=== PATIENT | female | born 1955 | race Caucasian/White ===

== ENCOUNTER → 2016-08-28 | Outpatient (CLI) | payer OTHER ==
--- NOTE | 2016-09-08 08:38 | MM ---
Reason for exam: additional evaluation requested from prior study. Last mammogram was performed 1 year and 6 months ago. History: Patient is postmenopausal. Family history of breast cancer in maternal aunt and endometrial cancer in maternal aunt. US discontinued breast bx LT of the left breast, June 23, 2014. Benign excisional biopsy of the left breast, 1989. Physical Findings: Nurse did not find any significant physical abnormalities on exam. MG Diagnostic Mammo w CAD S[place]AGO Bilateral CC and MLO view(s) were taken. Prior study comparison: March 05, 2015, left breast MG 3d diag mammo w/cad LT. June 08, 2014, mammogram, performed at [facility]. December 05, 2013, mammogram, performed at [facility]. The breast tissue is heterogeneously dense. This may lower the sensitivity of mammography. Stable nodule upper outer quadrant in the left breast. No significant new findings when compared with previous films. These results were verbally communicated with the patient on 09/08/16. ASSESSMENT: Benign, BI-RAD 2 RECOMMENDATION: Routine screening mammogram of both breasts in 1 year.
== END ==
LOC: RADMAMWWP 10:34
PROVIDERS: ATTEND Family Medicine
DX: R92.8 Other abnormal and inconclusive findings on diagnostic imaging of breast (principal)

== ENCOUNTER 2018-08-04 09:16 | Day surgery (SDC) | payer OTHER ==
[2018-07-30 16:02] VITALS: BMI 24.5
--- NOTE | 2018-08-04 06:04 | P.GSHP ---
History of Present Illness H&P Date: 08/04/18 CHIEF COMPLAINT: Colon screen HISTORY OF PRESENT ILLNESS: The patient is a 62-year-old female who presents for colon screen. Lower endoscopy was offered for further evaluation and management. PAST MEDICAL HISTORY: Please see list. PAST SURGICAL HISTORY: Please see list. MEDICATIONS: Please see list. ALLERGIES: Please see list. SOCIAL HISTORY: No illicit drug use FAMILY HISTORY: No reports of Crohn disease or ulcerative colitis. REVIEW OF ORGAN SYSTEMS: CONSTITUTIONAL: No reports of fevers or chills. PHYSICAL EXAM: VITAL SIGNS: Stable GENERAL: Well-developed pleasant in no acute distress. HEENT: No scleral icterus. Extraocular movements grossly intact. Moist buccal mucosa. NECK: Supple without lymphadenopathy. CHEST: Unlabored respirations. Equal bilateral excursions. CARDIOVASCULAR: Regular rate and rhythm. Distal 2+ pulses. ABDOMEN: Soft, nontender, nondistended. MUSCULOSKELETAL: No clubbing, cyanosis, or edema. ASSESSMENT: 1. Colon screen. PLAN: 1. Recommend proceeding with a lower endoscopy Past Medical History Past Medical History: Cancer, Hyperlipidemia Additional Past Medical History / Comment(s): STATES HX UTERINE CA History of Any Multi-Drug Resistant Organisms: None Reported Past Surgical History: Breast Surgery, Tubal Ligation Additional Past Surgical History / Comment(s): benign left lumpectomy Past Anesthesia/Blood Transfusion Reactions: Postoperative Nausea & Vomiting (PONV) Additional Past Anesthesia/Blood Transfusion Reaction / Comment(s): "HARD TIME WAKING UP" Smoking Status: Current every day smoker Medications and Allergies Home Medications Medication Instructions Recorded Confirmed Type Atorvastatin [Lipitor] 40 mg PO DAILY 07/30/18 07/30/18 History Allergies Allergy/AdvReac Type Severity Reaction Status Date / Time No Known Allergies Allergy Verified 07/30/18 15:54
[~2018-08-04 09:16] MED LIST: LACTATED RINGERS 1,000 ML IV SCH
[2018-08-04 09:59] VITALS: TEMP 97.9
[2018-08-04] MEDS ORDERED: LIDOCAINE 1% 20 ML VIAL (10MG/ML) FOR IV START INTRADERMA ONE (10:11)
[2018-08-04] MEDS ORDERED: PROPOFOL 10 MG/ML 20 ML VIAL IV ONE (10:24)
--- NOTE | 2018-08-04 10:57 | P.PCN ---
Date of Procedure: 08/04/18 Description of Procedure: PREOPERATIVE DIAGNOSIS: Colonoscopy screening. History of colon polyps POSTOPERATIVE DIAGNOSIS: Colonoscopy screening. History of colon polyps OPERATION: Colonoscopy to the ileocecal valve and appendiceal orifice. SURGEON: Jaja Davidson MD. ANESTHESIA: MAC. INDICATIONS: The patient is a 62-year-old female who presents for colonoscopy screening. Last colonoscopy over 5 years ago. Benefits and risks were described and informed consent was obtained. DESCRIPTION OF PROCEDURE: The patient had undergone Gatorade, MiraLAX and Dulcolax prep. She had been brought into the operating room and laid in the left lateral decubitus position. After adequate intravenous sedation, the rectum was examined with 2% lidocaine jelly. No external hemorrhoids were encountered. The rectal tone was within normal limits. No lesions were palpated in the rectal vault. An Olympus colonos cope initially adult size was exchanged to a pediatric scope was advanced until the ileocecal valve and appendiceal orifice were clearly viewed. A narrowing between 15 and 20 cm of the sigmoid colon was identified. The prep was fair. No scattered diverticulosis was encountered. No colonic polyps were found. No evidence of focal colitis was found. Retroflexion of the scope demonstrated no internal hemorrhoids without active bleeding or inflammation. The colon was desufflated. The patient had tolerated the procedure well. Withdrawal time was over 6 minutes. FINDINGS: [place] preparation quality scale fair, 3 (1-5) No internal hemorrhoids No external prolapsed hemorrhoids. No arteriovenous malformations. No adenomatous polyps. No focal colitis. Narrowing between 15 and 20 cm of the sigmoid colon was identified. RECOMMENDATIONS: Lower endoscopy in 5 years,2023 with pediatric colonoscopy or Cologaurd Plan - Discharge Summary Discharge Rx Participant: No New Discharge Prescriptions: No Action Atorvastatin [Lipitor] 40 mg PO DAILY Discharge Medication List Atorvastatin [Lipitor] 40 mg PO DAILY 07/30/18 [History] Follow up Appointment(s)/Referral(s): Jaja Davidson MD [STAFF PHYSICIAN] - As Needed Patient Instructions/Handouts: *[facility] - (Anesthesia) Endoscopy Discharge Instructions Activity/Diet/Wound Care/Special Instructions: Repeat colonoscopy 5 years, 2023. Use pediatric scope. May consider Cologaurd as alternative Discharge Disposition: HOME SELF-CARE
[2018-08-04 11:09] VITALS: RESP 16
[2018-08-04 11:11] VITALS: BP 123/73; PULSE 61
== END 2018-08-04 11:38 | disposition home or self-care (01) ==
LOC: ORWHC2ENDO 09:16
PROVIDERS: ATTEND Surgery Plastic and Reconstructive Surgery
DX: Z12.11 Encounter for screening for malignant neoplasm of colon (principal); K63.89 Other specified diseases of intestine; E78.5 Hyperlipidemia, unspecified; F17.200 Nicotine dependence, unspecified, uncomplicated; Z86.010 Personal history of colon polyps; Z85.42 Personal history of malignant neoplasm of other parts of uterus; Z79.899 Other long term (current) drug therapy
CPT/HCPCS: J2704; G0105; 45378

== ENCOUNTER → 2024-11-21 | Outpatient (CLI) | payer MEDICARE ==
--- NOTE | 2024-11-21 14:59 | MM ---
Reason for Exam: Screening (asymptomatic). Last mammogram was performed 8 year(s) and 3 month(s) ago. Patient History: Menarche at age 14. First Full-Term at age 20. Postmenopausal. 1989, Benign Excisional Biopsy on the left side. 06/23/2014, US discontinued breast bx LT on the left side. Maternal aunt had breast cancer. Maternal aunt had endometrial cancer. Risk Values: María 5 year model risk: 1.7%. NCI Lifetime model risk: 4.9%. Prior Study Comparison: 06/08/2014 Screening Mammogram, [facility]. 03/05/2015 Left Diagnostic Mammogram, [facility]. 08/28/2016 Bilateral Diagnostic Mammogram, [facility]. Tissue Density: The breasts are heterogeneously dense, which may obscure small masses. Findings: Analyzed By CAD. Right breast: There is no suspicious group of microcalcifications or new suspicious mass. Left breast: Stable benign nodular asymmetries There is no suspicious group of microcalcifications or new suspicious mass. Overall Assessment: Benign, BI-RAD 2 Management: Screening Mammogram of both breasts in [address] [facility] will attempt to contact patient to return for supplemental views and ultrasound if indicated. Patient should continue monthly self-breast exams. A clinical breast exam by your physician is recommended on an annual basis. This exam should not preclude additional follow-up of suspicious palpable abnormalities. Note on María scores and lifetime risk: 1. A María score greater than 3% is considered moderate risk. If this is the case, consider specialist referral to assess eligibility for a risk reducing agent. 2. If overall lifetime risk for the development of breast cancer is 20% or higher, the patient may qualify for future screening with alternating mammogram and breast MRI. [facility], , 11/21/2024 2:55 PM. Electronically signed and approved by: Maico Sevilla DO
--- NOTE | 2024-11-21 15:03 | CTL ---
EXAMINATION TYPE: CT Low Dose Lung DATE OF EXAM ORDERED: 11/21/2024 COMPARISON: None CLINICAL INDICATION: Female, 69 years old with history of Z87.91 Z12.2; [facility], FORMER SMOKER, PT QUIT 3 YEARS AGO, Lung cancer screening, History of Smoking/tobacco use. TECHNIQUE: Low dose computed tomography scan was performed through the chest at 1 mm thick sections a nd reconstructed images in multiple planes at 1 mm and [address] DLP: 108.[address] CTDI: 3.3 mGy Automated exposure control for dose reduction was used. CT DIAGNOSTIC QUALITY: Satisfactory FINDINGS: Nodules: No clinically significant pulmonary nodule. LUNGS: COPD: Severity: Mild centrilobular emphysematous changes. Fibrosis: Severity: None Lymph nodes: None Other findings: None RIGHT PLEURAL SPACE: Effusion: None Calcification: None Thickening: None Pneumothorax: None LEFT PLEURAL SPACE: Effusion: None Calcification: None Thickening: None Pneumothorax: None HEART: Heart Size: Normal Coronary Calcification: Tiny within the circumflex coronary artery. Pericardial Effusion: None OTHER FINDINGS: Upper abdomen: The visualized liver is diffusely hypoattenuating. Bony thorax: None Supraclavicular region: None Other: None IMPRESSION: 1. No clinically significant pulmonary nodule. 2. Mild emphysematous change. 3. Hepatic steatosis. CT LUNG RAD AND CT CHEST RECOMMENDATION: Lung-Rad 1 Negative: Continue annual screening with LDCT in 12 months. S Modifier (other clinically significant findings): None [facility], , 11/21/2024 3:00 PM
== END | disposition home or self-care (01) ==
LOC: RADCTMAIN 14:03
PROVIDERS: ATTEND Family Medicine
DX: Z12.31 Encounter for screening mammogram for malignant neoplasm of breast (principal); Z12.2 Encounter for screening for malignant neoplasm of respiratory organs; J43.2 Centrilobular emphysema; R92.333 Mammographic heterogeneous density, bilateral breasts; Z78.0 Asymptomatic menopausal state; K76.0 Fatty (change of) liver, not elsewhere classified; Z87.891 Personal history of nicotine dependence; Z80.3 Family history of malignant neoplasm of breast
CPT/HCPCS: 71271; 77063; 77067

== ENCOUNTER → 2024-11-30 | Outpatient (CLI) | payer MEDICARE ==
--- NOTE | 2024-11-30 16:05 | US ---
EXAMINATION TYPE: US thyroid st tissue head/neck DATE OF EXAM: 11/30/2024 COMPARISON: NONE CLINICAL INDICATION: Female, 69 years old with history of R22.9 SOFT TISSUE SWELLING; TECHNIQUE: Grayscale and color Doppler imaging of the thyroid gland. FINDINGS: GLAND SIZE: Right Lobe: 4.6 x 1.4 x 2.2 cm Overall Parenchyma: homogeneous Left Lobe: 3.4 x 1.5 x 1.4 cm Overall Parenchyma: homogeneous Isthmus Thickness: 0.2 cm NODULES RIGHT: # of nodules measured on right: 0 LEFT: # of nodules measured on left: 0 ISTHMUS: # of nodules measured in the isthmus: 0 Bilateral neck scanned, no evidence of lymphadenopathy. IMPRESSION: Normal study Highest TI-RADS level nodule reported: 2017 ACR TI-RADS LEVEL: TI-RADS assessment score and recommendation for follow-up based on appropriate scoring and treatment protocols. TR1 Benign No FNA TR2 Not suspicious No FNA TR3: If nodule size is ? 2.5 cm, FNA is recommended. If nodule size is ? 1.5 cm, follow-up imaging at 1, 3, and 5 years is recommended. TR4: If nodule size is ? 1.5 cm, FNA is recommended. If nodule size is ? 1.0 cm, follow-up imaging at 1, 2, 3, and 5 years is recommended. TR5: If nodule size is ? 1.0 cm, FNA is recommended. If nodule size is ? 0.5 cm, annual follow-up for up to 5 years is recommended. TR 1 thyroid nodules have a 0.3 % risk of malignancy. TR 2 thyroid nodules have a 1.5 % risk of malignancy. TR 3 thyroid nodules have a 4.8 % risk of malignancy. TR 4 thyroid nodules have a 9.1 % risk of malignancy. TR 5 thyroid nodules have a 35 % risk of malignancy. [email or web address] [facility], , 11/30/2024 4:02 PM
== END | disposition home or self-care (01) ==
LOC: RADUSWWP 14:19
PROVIDERS: ATTEND Pediatrics
DX: R22.1 Localized swelling, mass and lump, neck (principal)
CPT/HCPCS: 76536